=== PATIENT | female | born 1945 | race Caucasian/White ===

== ENCOUNTER 2023-10-04 19:37 | Inpatient (IN) | payer OTHER, SELFPAY ==
[2023-10-04] VITALS (7 sets, daily range): BP systolic 98–153; BP diastolic 59–85; BMI 21.4
[2023-10-04 15:00] LABS: % Basophils 0.5 % (0-2); % Immature Granulocytes 0.4 % (0-0.5); % Lymphocytes 15.2 % (20.5-51.1); % Monocytes 5.3 % (1.7-9.3); % Neutrophils 77.6 % (42.2-75.2); Absolute Basophils 0.1 10^3/uL (0-0.2); Absolute Eosinophils 0.1 10^3/uL (0-0.7); Absolute Immature Granulocytes 0.1 10^3/uL (0-0.05); Absolute Lymphocytes 2.1 10^3/uL (1.2-3.4); Absolute Monocytes 0.7 10^3/uL (0.1-0.6); Absolute Neutrophils 10.5 10^3/uL (1.4-6.5); Hematocrit 45.7 % (37.0-47.0); Hemoglobin 14.4 g/dL (12.0-16.0); Mean Corp Hgb Conc. 31.5 g/dL (33.0-37.0); Mean Corpuscular Volume 88.7 fL (81.0-99.0); Mean Platelet Volume 8.7 fL (7.4-10.4); Nucleated Red Blood Cells % 0 %; Platelet Count 304 10^3/uL (130-400); Red Blood Cell Count 5.15 10^6/uL (4.20-5.40); White Blood Cell Count 13.5 10^3/uL (4.8-10.8)
[2023-10-04 15:18] LABS: ALT (SGPT) 13 U/L (0-35); AST (SGOT) 25 U/L (14-36); Albumin 4.3 g/dl (3.5-5.0); Alkaline Phosphatase 97 U/L (38-126); Blood Urea Nitrogen 34 mg/dl (7-17); Calcium 10.1 mg/dl (8.4-10.2); Carbon Dioxide 22 mmol/L (22-30); Chloride 106 mmol/L (98-107); Glucose 153 mg/dl (70-99); Potassium 4.8 mmol/L (3.5-5.1); Sodium 138 mmol/L (135-145); Total Bilirubin 0.7 mg/dl (0.2-1.3); Total Protein 6.8 g/dl (6.3-8.2); eGFR 26.53
[2023-10-04] MEDS: TYLENOL 1000 MG PO (16:55)
[2023-10-04 17:16] LABS: Lactic Acid 1.2 mmol/L (0.7-2.0)
[2023-10-04 17:20] LABS: COVID-19 Antigen Negative (Negative)
[2023-10-04 18:02] LABS: D-Dimer 1.43 ug/mlFEU (0.00-0.50)
--- NOTE | 2023-10-04 18:15 | ED.GENMED ---
History of Present Illness
General
Chief Complaint: Cough
Source: patient
Exam Limitations: none
Time Seen by Provider: 10/04/23 16:13
Nursing documentation reviewed up to this point in time: agreed with
Travel History
Have you had any contact with someone who has COVID-19?: No
Do you have any symptoms of coronavirus? Fever > 100 degrees, chills, cough, shortness of breath, sore throat, loss of taste or smell, muscle aches, or headache?: No
History of Present Illness
History of Present Illness:
Patient to ED with complaint of worsening cough. Symptms started 10 days ago but have worsened over the past 2 days. She was seen by PCP today and found to be hypoxic at 88%. Sent to ED for eval. Fever x 2 days. Denies any cp/pressure. Brought
to ED by family for eval.
Past History
Past History
ED Past Medical History: HTN, NIDDM and Renal failure
Social History
Tobacco: Non-smoker
Alcohol: Occasional
Drug: None
Personal:
Living: with family
Review of Systems
Review of Systems
Allergies reviewed?: Yes
All Other Systems: ROS reviewed and negative except as documented in HPI and ROS
Constitutional: Reports no symptoms
EENT: Reports no symptoms
Respiratory: Reports cough and other (Low pulse ox)
Cardiac: Reports no symptoms
ABD/GI: Reports no symptoms
: Reports no symptoms
Musculoskeletal: Reports no symptoms
Skin: Reports no symptoms
Neurological: Reports no symptoms
Psychiatric: Reports no symptoms
Phy Exam
General Physical Exam
General Presentation: well appearing
General age: appears stated age
General Skin: warm and dry
General Habitus: normal
General Mental: alert
Cardiovascular Exam
Cardiovascular Exam: regular rate/rhythm and no edema
Pulmonary Exam
Pulmonary Exam: chest non tender and decreased breath sounds (right)
Cough: non productive cough
Gastrointestinal Exam
Gastrointestinal Exam: non tender and soft
Musculoskeletal Exam
Musculoskeletal Exam: full ROM and neuro vasc intact
Skin Exam
Skin Exam: normal color, warm/dry and no rash
Psychiatric Exam
Psychiatric Exam: normal mood/affect
Course
Orders/Labs/Results
Orders:
Orders
10/04/23 Breakfast
Cholesterol Lowering
At Your Request: Limited Participation
Cholesterol Lowering: Sodium, 2 Gram
10/04/23 14:48
Chest [CR Chest - 2 Views ] Urgent
Comment:
Reason For Exam: cough
10/04/23 14:54
Complete Blood Count/With Diff Urgent
Comprehensive Metabolic Panel Urgent
10/04/23 16:45
Acetaminophen [Tylenol] 1,000 mg PO NOW STA
10/04/23 16:56
COVID-19 Antigen Urgent
Source: Nasal Swab
Lactic Acid Urgent
Blood Culture Q30M
HENRRY Source: Blood/Venous
Specimen Description:
Influenza A+B Rapid Molecular Urgent
HENRRY Source: Nasal Swab
Specimen Description:
10/04/23 17:42
D-Dimer Urgent
Blood Culture Q30M
HENRRY Source: Blood/Venous
Specimen Description:
10/04/23 18:15
US Periph Venous LOWER Ext Cheo Urgent
Comment:
Reason For Exam: SOB, elevated DDimer
10/04/23 19:11
Azithromycin 500 mg/250 ml [Zithromax Infusion] 500 mg in 250 ml IV NOW
CefTRIAXone [Rocephin] 1,000 mg IV NOW STA
Sterile Water [Sterile Water For Injection] 10 ml IV NOW STA
VQ Scan [NM Lung Scan Vent/perf ] Stat
Comment:
Reason For Exam: sob
10/04/23 19:14
Admit/Transfer Patient As Directed
Co-Sign Provider:
Level of Care: Inpatient admission
Assign to:: Telemetry
Physician / Group: charlie nina
Diagnosis: acute hypoxic respiratory failure
Reason for Telemetry: Other
Other Reason for Telemetry: sepsis
Date to Stop Telemetry: 10/06/23
Time to Stop Telemetry: 11:00
Reason for Hospitalization: acute hypxia
Expected length of stay greater than two midnights?: Yes
ELOS- Estimated Length of Stay in days: 3
I certify the patient meets the requirements for IP care: Yes
10/04/23 19:15
Code Status As Directed
Resuscitation Status: Full Code
0.9% Sodium Chloride 1000 ml [Nss] 1,000 ml IV 60 mls/hr
10/04/23 19:17
EKG [Electrocardiogram (*1)] Stat
Reason for Study: QTc Monitoring
10/04/23 19:42
Procalcitonin Stat
PCT Algorithmm Indication: Respiratory
10/04/23 22:19
Acetaminophen [Tylenol] 650 mg PO Q4HPRN PRN
Azithromycin 500 mg/250 ml [Zithromax Infusion] 500 mg in 250 ml IV Q24H
Bisacodyl [Dulcolax] 10 mg RECTAL [id number] PRN
CefTRIAXone [Rocephin] 1,000 mg IV Q24H
Docusate W/Senna [Senokot-S] 1 tablet PO BIDPRN PRN
Heparin 5,000 units SC Q12
Ipratropium/Albuterol Sulfate [Duoneb] 3 ml INH R Q4HPRN PRN
Polyethylene Glycol Powder [Miralax] 17 grams PO DAILYPRN PRN
10/04/23 22:19
Activity As Directed
Activity Level: As Tolerated
Vital Signs As Directed
Frequency: Per unit guidelines
DX Deep Vein Thrombosis Video Routine
10/05/23 06:00
Basic Metabolic Panel IN AM
Complete Blood Count/No Diff IN AM
10/05/23 08:00
Dapagliflozin [Farxiga] 10 mg PO DAILY
Escitalopram Oxalate [Lexapro] 10 mg PO DAILY
10/05/23 19:14
Sodium Zirconium Cyclosilicate [Lokelma] 10 gram PO MOWEFR
10/06/23 06:00
Basic Metabolic Panel IN AM
Complete Blood Count/No Diff IN AM
10/06/23 11:00
DC Protocol for Telemetry ONCE
10/07/23 06:00
Basic Metabolic Panel IN AM
Complete Blood Count/No Diff IN AM
10/08/23 06:00
Basic Metabolic Panel IN AM
Complete Blood Count/No Diff IN AM
10/09/23 06:00
Basic Metabolic Panel IN AM
Complete Blood Count/No Diff IN AM
Abnormal Lab Results
10/04/23 10/04/23
14:54 17:42
WBC 13.5 H 10^3/uL
(4.8-10.8)
MCHC 31.5 L g/dL
(33.0-37.0)
Abs Immat Gran (auto) 0.1 H 10^3/uL
(0-0.05)
Absolute Neuts (auto) 10.5 H 10^3/uL
(1.4-6.5)
Absolute Monos (auto) 0.7 H 10^3/uL
(0.1-0.6)
Neutrophils % 77.6 H %
(42.2-75.2)
Lymphocytes % 15.2 L %
(20.5-51.1)
D-Dimer 1.43 H ug/mlFEU
(0.00-0.50)
BUN 34 H mg/dl
(7-17)
Creatinine 1.9 H mg/dL
(0.6-1.0)
Glucose 153 H mg/dl
(70-99)
10/04/23 14:54
10/04/23 14:54
Vital Signs
Initial and Last Documented VS:
Initial Vital Signs
Temp Pulse Resp BP Pulse Ox
101.1 F H 117 20 136/77 92
10/04/23 14:44 10/04/23 14:44 10/04/23 14:44 10/04/23 14:44 10/04/23 14:44
Last Documented Vital Signs
Temp Pulse Resp BP Pulse Ox
101.1 F H 88 28 110/79 95
10/04/23 14:44 10/04/23 21:30 10/04/23 21:30 10/04/23 21:00 10/04/23 21:30
*Critical Care Note
Total Time (30-74mins, 75-104mins- exclusive of procedures): Not Applicable
Update Note
Update Note:
Patient to ED with report of cough for the past 2 weeks. Cough worsened over the past 48 hours. Reports fever but no chills. Seen by PCP today, pulse ox noted to be in upper 80's on RA. No prior history of lung disease. On arrival to ED she is
88% RA. Placed o 2L NC and pulse ox improved to 93%. Labs reviewed. WBC 13.3 CXR normal. DDimer elevated. Unable to CT due to underlying kidney disease. Recommend admission tonight, VQ scan tomorrow. SHe is agreeable to plan. NO CP/pressure,
SOB.
ED Attending Note
-
Portions of this chart may have been created with voice recognition software.� Occasional wrong word or��sound alike� substitutions may have occurred due to the inherent limitations of voice recognition software.
Discharge Plan
Departure
Patient Disposition: Admit
Date of Disposition: 10/04/23
Time of Disposition: 18:22
Presentation/result/management discussed w/ accepting MD/DO: Hospitalist
Patient with high blood pressure during this ER visit?: No
Condition: Fair
Discharge Problem:
Hypoxemia
Interventions
Interventions:
*Risk Screen - Suicide Last Done: 10/04/23 16:22
*General Assessment Last Done: 10/04/23 16:20
*Neglect/Abuse Screening Last Done: 10/04/23 16:20
ED- Fall Risk Assessment Last Done: 10/04/23 16:20
*ED COVID-19 Vaccine History Last Done: 10/04/23 14:44
ED- Pulmonary Assessment Last Done: 10/04/23 16:20
--- NOTE | 2023-10-04 18:41 | HPS.HSE ---
Family Physician
-
Family Physician: Narinder Wadsworth
Chief Complaint
-
cough
History of Present Illness
78 year old with PMH for CKD, HTN presented to us with 2 weeks of non productive cough. denied any congestion. denied fever. patient stated very weak. she was taking Mucinex with no relief in her symptoms. she went to PCP today and was noted hypoxic
and fever of 101. patient denied HARPER,dizzy or syncopal episode. stated sob with cough. denied abdominal pain, n,v, d. denied dysuria or hematuria.
elevated D dimer. noted hypoxic on arrival. chest x ray negative. admitting for further management.
Medical History
Past Medical History
Past Medical History: Reports Other
Additional Past Medical History:
Diverticulitis
CKD stage IV
Anxiety
Orbital lymphoma
Hypertension
Hyperparathyroidism
Hyperlipidemia
Past Surgical History: Reports Other
Additional Past Surgical History:
Varicose vein ligation and stripping
Bilateral total hip arthroplasty
Social History
Tobacco: Former Smoker
Alcohol: None
Drug: None
Personal: Single
Living: Alone
Family History
Family History: Not pertinent
Allergies / Home Medications
Allergies reflects when Allergies were last updated in [facility].
Home Medications with original date entered in [facility]
Allergy/Medication List:
Allergies
Allergy/AdvReac Type Severity Reaction Status Date / Time
codeine Allergy Unknown Unverified 10/04/23 16:55
Home Medications
amlodipine 5 mg tablet 5 mg PO BID 10/04/23
cholecalciferol (vitamin D3) 25 mcg (1,000 unit) tablet (Vitamin D3) 25 mcg PO DAILY 10/04/23
dapagliflozin propanediol 5 mg tablet (Farxiga) 10 mg PO DAILY 10/04/23
escitalopram oxalate 10 mg tablet 10 mg PO DAILY 10/04/23
sodium zirconium cyclosilicate 10 gram oral powder packet (Lokelma) 10 g PO MOWEFR 10/04/23
Review of Systems
-
Constitutional: Reports No Symptoms
EENT: Reports No Symptoms
Respiratory: Reports Cough
Cardiac: Reports No Symptoms
Abdomen/GI: Reports No Symptoms
: Reports No Symptoms
Musculoskeletal: Reports No Symptoms
Skin: Reports No Symptoms
Neurological: Reports No Symptoms
Endocrine: Reports No Symptoms
Hematologic/Lymphatic: Reports No Symptoms
Psych: Reports No Symptoms
Physical Exam
Vital Signs
Vital Signs
Temp Pulse Resp BP Pulse Ox
101.1 F H 96 25 98/61 93
10/04/23 14:44 10/04/23 18:00 10/04/23 18:00 10/04/23 18:00 10/04/23 17:45
Physical Exam
General: Well Developed, Well Nourished and No Apparent Distress
HEENT: NormoCephalic, Moist mucous membranes and Atraumatic
Respiratory: Rhonchi
Cardiac: S1/S2 and Regular Rhythm; No Murmur or Rub
GI: Soft, Non Tender, Non Distended and Normal Bowel Sounds; No Organomegaly
Rectal: Deferred by Provider
Musculoskeletal: No Clubbing, No Cyanosis and No Edema
Skin: No Rash
Neuro: AO x 3 and Nonfocal/grossly intact
Psych: Calm
Laboratory Results
-
10/04/23 14:54
10/04/23 14:54
Laboratory Results
Lactic Acid 1.2 mmol/L (0.7-2.0) 10/04/23 16:56
Total Bilirubin 0.7 mg/dl (0.2-1.3) 10/04/23 14:54
AST 25 U/L (14-36) 10/04/23 14:54
ALT 13 U/L (0-35) 10/04/23 14:54
Alkaline Phosphatase 97 U/L (38-126) 10/04/23 14:54
Data Reviewed
-
Diagnostic Radiology: Report Reviewed by me
Lab Data: Labs Reviewed by me
Impression/Plan
-
# Acute hypoxic respiratory failure/cough
# Sepsis as evidenced by hypotension, fever 101, WBC 13.5
-88 on room air requiring 2 L of oxygen
-83 percentage on 2 L
-WBC 13.5
-D-dimer 1.43
-COVID-negative
-Chest x-ray with no acute cardiopulmonary process
-Negative influenza AMB
-Blood culture sent from ER
-obtain Doppler of lower extremities
-will obtain VQ scan
-procal stat
-iv ceftriaxone and zithro
-nebs prn for sob/wheezing
-continue supplemental oxygen to keep sat >92
-wean as tolertaed
# Chronic kidney disease stage IV
-Creatinine 1.9
-Continue to monitor
-Farxiga continued
# History of hypertension
-Patient is hypotensive in the ER
-Hold Norvasc
# Anxiety
-Celexa continued
# DVT prophylaxis
-Heparin subcu
# CODE STATUS
-Full code
--- NOTE | 2023-10-04 19:15 | W.PN.UPDATE ---
Addendum entered and electronically signed by Joe Amaro MD 10/04/23 19:17:
Venous US to rule out DVT pending.
Original Note:
Update Note
Progress Note Update
This is an addendum to the H&P written by Audra Recinos on 10/04/2023.
Patient seen and examined independently with LIBERAL ARTS DEAN.
78-year-old female past medical history of multiple episodes of bronchitis, hypertension, CKD 4, anxiety/depression, right eye conjunctival lymphoma, presenting with productive cough for past 2 weeks associated with weakness and fever today.
Intiially had sore throat. No shortness of breath or chest pain. No lower extremity edema or pain in the legs.
On examination she has left lower base rhonchi on examination. Labs show leukocytosis, elevated D-dimer, renal impairment consistent with CKD 4. Chest x-ray shows no acute abnormality. Presentation consistent with likely viral bronchitis. Check
procalcitonin. Check blood cultures. IV fluids. Ceftriaxone/Zithromycin. Check VQ scan given elevated D-dimer although suspicion for PE is less.
[2023-10-04 20:20] LABS: Procalcitonin 0.08 ng/ml (0.0-0.25)
[2023-10-04] MEDS: STERILE WATER FOR INJECTION 10 ML IV (20:30)
[2023-10-04] MEDS: ROCEPHIN 1000 MG IV (20:30)
[2023-10-04] MEDS: NSS 1000 IV (20:45)
[2023-10-04] MEDS: ZITHROMAX INFUSION 250 IV (20:45)
--- NOTE | 2023-10-05 02:51 | PTCARENOTE ---
Patient arrived on unit @2220 via stretcher from ED. Patient AAOx3 ambulate from stretcher to bed, denies any pain or discomfort. Patient shows no s/s of respiratory distress, skin assessment completed, oriented to unit, call foote within reach.
[2023-10-05 03:04] VITALS: BP 141/72
[2023-10-05] MEDS: LOKELMA 10 GRAM PO (05:45)
[2023-10-05 07:00] VITALS: BP 120/70
[2023-10-05 07:08] LABS: Hematocrit 41.7 % (37.0-47.0); Hemoglobin 13.5 g/dL (12.0-16.0); Mean Corp Hgb Conc. 32.4 g/dL (33.0-37.0); Mean Corpuscular Hgb 28.4 pg (27.0-31.0); Mean Corpuscular Volume 87.6 fL (81.0-99.0); Mean Platelet Volume 9.2 fL (7.4-10.4); Platelet Count 281 10^3/uL (130-400); Red Blood Cell Count 4.76 10^6/uL (4.20-5.40); Red Cell Dist. Width 13.2 % (11.5-14.5); White Blood Cell Count 14.3 10^3/uL (4.8-10.8)
[2023-10-05 07:21] LABS: Blood Urea Nitrogen 32 mg/dl (7-17); Calcium 9.6 mg/dl (8.4-10.2); Carbon Dioxide 22 mmol/L (22-30); Chloride 108 mmol/L (98-107); Estimated Creatinine Clearance 23 ml/min; Glucose 105 mg/dl (70-99); Potassium 4.6 mmol/L (3.5-5.1); Sodium 142 mmol/L (135-145); eGFR 30.32
[2023-10-05] MEDS: LEXAPRO 10 MG PO (08:05)
[2023-10-05] MEDS: FARXIGA 10 MG PO (08:05)
[2023-10-05 11:26] VITALS: BP 151/81
--- NOTE | 2023-10-05 11:27 | W.PN.HOSP.TC ---
Today's Communication/Plan
-
Now off oxygen but may need home oxygen screen prior to discharge with performed that today if we can get the ventilation/perfusion scan done
Await results of ventilation/perfusion scan
With procalcitonin been normal still presumed dealing with a viral illness and if VQ scan within normal limits discharge planning
Add benzonatate for cough
Assessment / Plan
Assessment / Plan
78 year old with PMH for CKD, HTN presented to us with 2 weeks of non productive cough. denied any congestion. denied fever. patient stated very weak. she was taking Mucinex with no relief in her symptoms. she went to PCP today and was noted hypoxic
and fever of 101. patient denied HARPER,dizzy or syncopal episode. stated sob with cough. denied abdominal pain, n,v, d. denied dysuria or hematuria.
elevated D dimer. noted hypoxic on arrival. chest x ray negative. admitting for further management.
# Acute hypoxic respiratory failure/cough
# Sepsis as evidenced by hypotension, fever 101, WBC 13.5
-88 on room air requiring 2 L of oxygen
-83 percentage on 2 L/now off oxygen will need home oxygen screen prior to discharge
-WBC 13.5 remains elevated 14,000
-D-dimer 1.43/awaiting ventilation/perfusion scan
-COVID-negative
-Chest x-ray with no acute cardiopulmonary process
-Negative influenza AMB
-Blood culture sent from ER
-obtain Doppler of lower extremities/result was within normal limits no DVT
-will obtain VQ scan
-procal was within normal limits and will discontinue antibiotics that was started empirically
-iv ceftriaxone and zithro
-nebs prn for sob/really not exhibiting wheezing on my exam
-continue supplemental oxygen to keep sat >92
-wean as tolertaed
# Chronic kidney disease stage IV
-Creatinine 1.9
-Continue to monitor
-Farxiga continued
# History of hypertension
-Patient is hypotensive in the ER
-Hold Norvasc
# Anxiety
-Celexa continued
# DVT prophylaxis
-Heparin subcu
# CODE STATUS
-Full code
Anticipated Discharge: Within 24 hours
Subjective/Interval History
-
Date of Service: October 05, 2023
Looks fairly comfortable until she starts coughing that she has a dry hacking cough at times becomes intractable there is no wheezing I would. She is now off oxygen after pulse ox checked this morning she denies any chest pain
Objective Data
-
Labs:
Laboratory Results
10/05/23
05:57
WBC 14.3 H
Hgb 13.5
Hct 41.7
Plt Count 281
Sodium 142
Potassium 4.6
Chloride 108 H
Carbon Dioxide 22
BUN 32 H
Creatinine 1.7 H
Glucose 105 H
Calcium 9.6
Vital Signs:
Vital Signs
Temp Pulse Resp BP Pulse Ox
98.1 F 95 16 151/81 92
10/05/23 11:26 10/05/23 11:26 10/05/23 11:26 10/05/23 11:26 10/05/23 11:26
I&O
10/04/23 10/05/23 10/06/23
06:59 06:59 06:59
Intake Total 0 / 0
Balance 0 / 0
Review of Systems
-
History Source: Patient
Constitutional: Reports No Symptoms
EENT: Reports No Symptoms Reported
Respiratory: Reports Cough
Physical Exam
-
General: Comfortable
HEENT: Normocephalic
Respiratory: Rhonchi and Crackles (On the left and probably on chronic basis based on family input)
Cardiac: Regular Rhythm
GI: Soft, Nontender and Nondistended
Musculoskeletal: No Clubbing
Neuro: Awake and Alert
Psych: Intact Judgement/Insight
Data Reviewed
-
Total Time Spent with Patient (in minutes): 45
Diagnostic Radiology: Report Reviewed by me (Chest x-ray no acute process seen)
Labs: Labs Reviewed by me (Calcitonin was actually 0.08 and normal)
[2023-10-05 14:32] VITALS: BMI 21.4
[2023-10-05 15:00] VITALS: BP 135/74
--- NOTE | 2023-10-05 15:52 | CM ---
Met with pt and her daughter at bedside
Pt lives alone in a one floor apartment
Independent, does own cooking/cleaning
DME - none
SNF/HH - denies past hx
Has ride at d/c
PCP - Dr Mahad Cho
Pharm - [facility]
CM will follow for d/c needs
Plan - anticipate home no needs
[2023-10-05] MEDS: NSS 1000 IV (16:19)
[2023-10-05 19:00] VITALS: BP 138/78
[2023-10-05] MEDS: TYLENOL 650 MG PO (21:02)
[2023-10-05] MEDS: TESSALON PERLES 200 MG PO (21:02)
[2023-10-05] MEDS: NORVASC 5 MG PO (21:04)
[2023-10-05] MEDS: ZITHROMAX INFUSION 250 IV (21:11)
[2023-10-05 23:20] VITALS: BP 118/66
[2023-10-06 03:07] VITALS: BP 133/60
[2023-10-06 06:20] LABS: Hematocrit 36.9 % (37.0-47.0); Hemoglobin 12.3 g/dL (12.0-16.0); Mean Corp Hgb Conc. 33.3 g/dL (33.0-37.0); Mean Corpuscular Hgb 28.7 pg (27.0-31.0); Platelet Count 215 10^3/uL (130-400); Red Blood Cell Count 4.29 10^6/uL (4.20-5.40); Red Cell Dist. Width 13.1 % (11.5-14.5); White Blood Cell Count 11.5 10^3/uL (4.8-10.8)
[2023-10-06 06:39] LABS: Blood Urea Nitrogen 29 mg/dl (7-17); Carbon Dioxide 23 mmol/L (22-30); Chloride 110 mmol/L (98-107); Estimated Creatinine Clearance 23 ml/min; Glucose 86 mg/dl (70-99); Potassium 4.2 mmol/L (3.5-5.1); Sodium 141 mmol/L (135-145); eGFR 30.32
[2023-10-06 07:00] VITALS: BP 131/68
[2023-10-06] MEDS: FARXIGA 10 MG PO (08:50)
[2023-10-06] MEDS: LEXAPRO 10 MG PO (08:50)
[2023-10-06] MEDS: NORVASC 5 MG PO (08:50)
[2023-10-06 11:00] VITALS: BP 154/82
--- NOTE | 2023-10-06 13:39 | W.PN.HOSP.TC ---
Today's Communication/Plan
-
Discharge home today on oral antibiotic
Assessment / Plan
Assessment / Plan
78 year old with PMH for CKD, HTN presented to us with 2 weeks of non productive cough. denied any congestion. denied fever. patient stated very weak. she was taking Mucinex with no relief in her symptoms. she went to PCP today and was noted hypoxic
and fever of 101. patient denied HARPER,dizzy or syncopal episode. stated sob with cough. denied abdominal pain, n,v, d. denied dysuria or hematuria.
elevated D dimer. noted hypoxic on arrival. chest x ray negative. admitting for further management.
# Acute hypoxic respiratory failure/cough
# Severe sepsis with acute organ dysfunction
Patient meets severe sepsis criteria as evidenced by hypotension, fever 101, WBC 13.5
-88 on room air requiring 2 L of oxygen
-83 percentage on 2 L/now off oxygen will need home oxygen screen prior to discharge
-WBC 13.5 remains elevated 14,000
-D-dimer 1.43/awaiting ventilation/perfusion scan
-COVID-negative
-Chest x-ray with no acute cardiopulmonary process
-Negative influenza AMB
-Blood culture sent from ER
-obtain Doppler of lower extremities/result was within normal limits no DVT
-will obtain VQ scan
-procal was within normal limits and will discontinue antibiotics that was started empirically
-iv ceftriaxone and zithro
-nebs prn for sob/really not exhibiting wheezing on my exam
-continue supplemental oxygen to keep sat >92
-wean as tolertaed
10/05
Patient passed ambulatory pulse ox
CT chest without contrast Small medial right lower lobe consolidation most likely representing pneumonia.
Will be discharged on oral Ceftin/azithromycin
# Chronic kidney disease stage IV
-Creatinine 1.9---> improved to 1.7
-Continue to monitor
-Farxiga continued
# History of hypertension
-Patient is hypotensive in the ER
-Hold Norvasc
# Anxiety
-Celexa continued
# DVT prophylaxis
-Heparin subcu
# CODE STATUS
-Full code
Anticipated Discharge: Today
Subjective/Interval History
-
Date of Service: October 06, 2023
Patient seen and examined at bedside, denies any chest pain or shortness of breath, no abdominal pain, no nausea, no vomiting, no diarrhea or constipation.
Still was coughing, CT chest without contrast shows Small medial right lower lobe consolidation most likely representing pneumonia.
Objective Data
-
Labs:
Laboratory Results
10/06/23
05:47
WBC 11.5 H
Hgb 12.3
Hct 36.9 L
Plt Count 215 D
Sodium 141
Potassium 4.2
Chloride 110 H
Carbon Dioxide 23
BUN 29 H
Creatinine 1.7 H
Glucose 86
Calcium 9.0
Vital Signs:
Vital Signs
Temp Pulse Resp BP Pulse Ox
97.6 F 88 18 131/68 95
10/06/23 07:00 10/06/23 07:00 10/06/23 07:00 10/06/23 07:00 10/06/23 07:00
I&O
10/05/23 10/06/23 10/07/23
06:59 06:59 06:59
Intake Total 0 / 0 1370 / 1370
Balance 0 / 0 1370 / 1370
Physical Exam
-
General: Well Developed and No Apparent Distress
HEENT: Normocephalic, Atraumatic and Moist Mucous Membranes
Respiratory: Rales and Rhonchi
Cardiac: Regular Rhythm and S1/S2; Negative Murmur, Rub or Gallop
GI: Soft, Nontender, Nondistended and Normal Bowel Sounds; Negative Organomegaly
Rectal: Deferred by Provider
Musculoskeletal: No Clubbing, No Cyanosis and No Edema
Skin: Negative Rash
Neuro: Nonfocal/Grossly Intact
--- NOTE | 2023-10-06 13:47 | W.DCSUMMARY ---
Discharge Summary
Discharge Data
Date of Admission: 10/04/23
Date of Discharge: 10/06/23
-
Pending Results: No
Hospital Course
78 year old with PMH for CKD, HTN presented to us with 2 weeks of non productive cough. denied any congestion. denied fever. patient stated very weak. she was taking Mucinex with no relief in her symptoms. she went to PCP today and was noted hypoxic
and fever of 101. patient denied HARPER,dizzy or syncopal episode. stated sob with cough. denied abdominal pain, n,v, d. denied dysuria or hematuria.
elevated D dimer. noted hypoxic on arrival. chest x ray negative. admitting for further management.
# Acute hypoxic respiratory failure/cough
# Severe sepsis with acute organ dysfunction
Patient meets severe sepsis criteria as evidenced by hypotension, fever 101, WBC 13.5
-88 on room air requiring 2 L of oxygen
-83 percentage on 2 L/now off oxygen will need home oxygen screen prior to discharge
-WBC 13.5 remains elevated 14,000
-D-dimer 1.43/awaiting ventilation/perfusion scan
-COVID-negative
-Chest x-ray with no acute cardiopulmonary process
-Negative influenza AMB
-Blood culture sent from ER
-obtain Doppler of lower extremities/result was within normal limits no DVT
-will obtain VQ scan
-procal was within normal limits and will discontinue antibiotics that was started empirically
-iv ceftriaxone and zithro
-nebs prn for sob/really not exhibiting wheezing on my exam
-continue supplemental oxygen to keep sat >92
-wean as tolertaed
10/05
Patient passed ambulatory pulse ox
CT chest without contrast Small medial right lower lobe consolidation most likely representing pneumonia.
Will be discharged on oral Ceftin/azithromycin
# Chronic kidney disease stage IV
-Creatinine 1.9---> improved to 1.7
-Continue to monitor
-Farxiga continued
# History of hypertension
-Patient is hypotensive in the ER
-Hold Norvasc
# Anxiety
-Celexa continued
# DVT prophylaxis
-Heparin subcu
# CODE STATUS
-Full code
Anticipated Discharge: Today
Discharge Plan
-
Patient Disposition: Home (Routine Discharge)
Discharge Diagnosis/Procedures: Acute hypoxic respiratory failure
Severe sepsis secondary to pneumonia
Diet: No restrictions
Activity: No restrictions
Driving Restrictions: As prior to admission
Referrals:
Narinder Wadsworth MD [Family Provider] -
Prescriptions:
New
azithromycin [Zithromax] 250 mg tablet
250 mg PO DAILY 4 Days Qty: 4 0RF
cefuroxime axetil 250 mg tablet
250 mg PO BID Qty: 10 0RF
albuterol sulfate 90 mcg/actuation HFA aerosol inhaler
2 puff inhalation Q6H PRN (Reason: shortness of breath or wheezing) Qty: 8.5 0RF
Robitussin Cough-Chest Bijan DM 10-200 mg capsule
2 tab-cap PO Q6H PRN (Reason: Cough) Qty: 14 0RF
Continued
amlodipine 5 mg tablet
5 mg PO BID
escitalopram oxalate 10 mg tablet
10 mg PO DAILY
Lokelma 10 gram Powder In Packet
10 g PO MOWEFR
cholecalciferol (vitamin D3) [Vitamin D3] 25 mcg (1,000 unit) Tablet
25 mcg PO DAILY
dapagliflozin propanediol [Farxiga] 10 mg Tablet
10 mg PO DAILY
Discharge Orders:
Discharge Patient (As Directed); Ordered 10/06/23
Ordered By: Adin Bean
Discharge Date and Time
Print Language: IRISH
--- NOTE | 2023-10-06 14:20 | CM ---
Case management following for d/c planning
Pt for d/c today
Has ride home with her son
Discussed IMM
Plan - home no needs
== END 2023-10-06 14:58 | disposition home or self-care (01) | DRG 871 ==
LOC: 3 WEST ACU 19:37
PROVIDERS: Nurse Practitioner; Registered Nurse; ADMITTING PHYSICIAN Hospitalist; ATTENDING PHYSICIAN General Practice; EMERGENCY PHYSICIAN Emergency Medicine; FAMILY PHYSICIAN Family Medicine
DX: A41.89 Other specified sepsis (principal); J18.9 Pneumonia, unspecified organism; J96.01 Acute respiratory failure with hypoxia; N18.4 Chronic kidney disease, stage 4 (severe); Z11.52 Encounter for screening for COVID-19; R65.20 Severe sepsis without septic shock; Z87.891 Personal history of nicotine dependence; I95.9 Hypotension, unspecified; E11.22 Type 2 diabetes mellitus with diabetic chronic kidney disease; I12.9 Hypertensive chronic kidney disease with stage 1 through stage 4 chronic kidney disease, or unspecified chronic kidney disease; F41.9 Anxiety disorder, unspecified
CPT/HCPCS: 71046; 71250; 78582; 80048; 80053; 83605; 84145; 85025; 85027; 85379; 87040; 87502; 87811; 93005; 93970; 96365; 96375; 99285; A9540; A9567

== ENCOUNTER → 2023-12-21 08:35 | Outpatient (REF) | payer OTHER, SELFPAY | LOC: RAD 08:35 | PROVIDERS: ATTENDING PHYSICIAN Internal Medicine Critical Care Medicine; FAMILY PHYSICIAN Family Medicine | DX: Z87.01 Personal history of pneumonia (recurrent) (principal) | CPT/HCPCS: 71250 ==

== ENCOUNTER → 2024-06-15 08:30 | Outpatient (REF) | payer OTHER, SELFPAY | LOC: RAD 08:30 | PROVIDERS: ATTENDING PHYSICIAN Family Medicine | DX: Z78.0 Asymptomatic menopausal state (principal) | CPT/HCPCS: 77080 ==

== ENCOUNTER → 2024-08-09 13:17 | Outpatient (REF) | payer OTHER, SELFPAY | LOC: RAD 13:17 | PROVIDERS: ATTENDING PHYSICIAN Internal Medicine Critical Care Medicine; FAMILY PHYSICIAN Family Medicine | DX: Z87.01 Personal history of pneumonia (recurrent) (principal) | CPT/HCPCS: 71046 ==